=== PATIENT | female | born 1980 | race Caucasian/White ===

== ENCOUNTER 2017-01-31 14:09 | Emergency (ER) | payer OTHER ==
[~2017-01-31] VITALS: Ht 177.8 cm; Wt 100.9 kg
[~2017-01-31 14:09] MED LIST: BACTRIM,SEPT1 TABLET PO; NOHOMEMEDS; PERCOCET 5/31 TABLET PO; ZOFRAN ODT8 MG PO
[2017-01-31 15:27] LABS: HEMATOCRIT 38.8 % (36.0-46.0); MCHC 31.7 G/DL (30.0-36.0); MCV 85.3 FL (83-99); RBC DIS.WIDTH-CV 13.2 % (11.8-14.6); RBC DIS.WIDTH-SD 41.1 % (39-53); RED BLOOD COUNT 4.55 M/uL (3.80-5.20); WHITE BLOOD COUNT 11.5 K/uL (4.1-10.2)
[2017-01-31 15:59] LABS: QUANTITATIVE HCG < 4.0 MIU/ML
[2017-01-31 16:02] LABS: ANION GAP 8 MEQ/L (2-14); CHLORIDE 105 MEQ/L (99-109); POTASSIUM 4.5 MEQ/L (3.7-5.4); SAMPLE HEMOLYSIS CHECK 0; SAMPLE ICTERIC CHECK 0; SAMPLE LIPEMIA CHECK 0; SODIUM 139 MEQ/L (136-147)
[2017-01-31 16:08] LABS: GFR ESTIMATE (CALCULATED) > 59 mL/min/; GLUCOSE 88 mg/dL (70-99); UREA NITROGEN (BUN) 10 mg/dL (9-23)
[2017-01-31 16:23] LABS: MEAN PLAT.VOLUME 11.5 uM^3 (9.5-12.4); PLAT.SUFFICIENCY ADEQUATE; PLATELET COUNT 273 K/uL (156-360)
[2017-01-31] MEDS ORDERED: ULTRAM50 MG PO (19:53)
[2017-01-31 20:16] VITALS: BP 124/77
== END 2017-01-31 20:17 | disposition home or self-care (01) ==
LOC: EME 14:09
PROVIDERS: Nurse Practitioner Family
DX: R22.2 Localized swelling, mass and lump, trunk (principal); R16.0 Hepatomegaly, not elsewhere classified; M54.9 Dorsalgia, unspecified; Z87.891 Personal history of nicotine dependence
CPT/HCPCS: 74177; 76705; 80048; 84702; 85027; 99281; 99285; J1885; J3010; J7040

== ENCOUNTER → 2017-02-09 | Outpatient (CLI) | payer OTHER ==
[~2017-02-09] MED LIST changes: +ULTRAM50 MG PO
== END | disposition home or self-care (01) ==
LOC: OPR 08:00 → EDSTATUS 08:00 → RAD 08:52 → OPR 08:52
PROC: 0JB83ZX Excision of Abdomen Subcutaneous Tissue and Fascia, Percutaneous Approach, Diagnostic (ICD-10-PCS; principal; 2017-02-09)
DX: R22.2 Localized swelling, mass and lump, trunk (principal)
CPT/HCPCS: 76942; 88305

== ENCOUNTER 2017-03-09 08:40 | Day surgery (SDC) | payer OTHER ==
[~2017-03-09] VITALS: Ht 177.8 cm; Wt 108.0 kg
[2017-03-09] MEDS ORDERED: TYLENOL ARTHRI650 MG PO (09:09)
[2017-03-09 09:12] VITALS: BP 129/66
[2017-03-09 16:46] VITALS: BP 128/82
[2017-03-10 00:08] VITALS: BP 114/55
[2017-03-10 03:36] VITALS: BP 111/60
[2017-03-10 06:53] LABS: HEMATOCRIT 33.4 % (36.0-46.0); MCH 26.9 PG (29.0-34.0); MCHC 31.4 G/DL (30.0-36.0); MCV 85.6 FL (83-99); MEAN PLAT.VOLUME 12.2 uM^3 (9.5-12.4); PLATELET COUNT 230 K/uL (156-360); RBC DIS.WIDTH-CV 13.4 % (11.8-14.6); RBC DIS.WIDTH-SD 41.6 % (39-53); WHITE BLOOD COUNT 13.7 K/uL (4.1-10.2)
[2017-03-10 06:57] LABS: POINT-OF-CARE METER ID UU14162508
[2017-03-10 08:00] VITALS: BP 123/77
[2017-03-10] MEDS ORDERED: LIDOCAINE700 MG TD (10:25)
[2017-03-10] MEDS ORDERED: OXYCODONE HCL5 MG PO (10:25)
== END 2017-03-10 11:39 | disposition home or self-care (01) ==
LOC: SDC 08:40 → 2EAST 13:08 → 2SOUTH 13:08 → SDC 13:41 → 2EAST 16:26
PROVIDERS: Surgery
DX: C44.599 Other specified malignant neoplasm of skin of other part of trunk (principal); R16.0 Hepatomegaly, not elsewhere classified; Z87.891 Personal history of nicotine dependence; Z88.0 Allergy status to penicillin
CPT/HCPCS: 82948; 85027; 88305; 88341 TC; 88342 TC; G0378; J0330; J0690; J1100; J1170; J1200; J1650; J2250; J2405; J2765; J3010; J7120; S0020

== ENCOUNTER → 2017-03-15 | Outpatient (CLI) | payer OTHER ==
[~2017-03-15] MED LIST changes: +LIDOCAINE700 MG TD; +OXYCODONE HCL5 MG PO; +TYLENOL ARTHRI650 MG PO
== END | disposition home or self-care (01) ==
LOC: AMB 11:56
DX: Z48.03 Encounter for change or removal of drains (principal); C49.3 Malignant neoplasm of connective and soft tissue of thorax
CPT/HCPCS: 99212